=== PATIENT | male | born 1975 | race Hispanic/Latino ===

== ENCOUNTER 2020-06-05 14:31 | Emergency (ER) | payer OTHER ==
[2020-06-05 15:49] LABS: HEMATOCRIT 42.3 % (39.0-50.0); HEMOGLOBIN 13.5 g/dl (14.0-18.0); IMMATURE GRANULOCYTES 0.4 % (0.0-5.0); MEAN CELL VOLUME 83.6 fL CALC (80.0-100.0); MEAN CORPUSCULAR HGB 26.7 pG CALC (26.0-32.0); MEAN CORPUSCULAR HGB CONC 31.9 g/dL CAL (32.0-36.0); NEUT# 4.99 thou/uL (1.82-7.42); RED BLOOD COUNT 5.06 mill/uL (4.70-6.10); RED CELL DISTRI WIDTH 13.3 % (11.5-15.5)
[2020-06-05 16:02] LABS: ALBUMIN 4.2 g/dL (3.2-5.0); ALKALINE PHOSPHATASE 87 u/l (38-126); ANION GAP 14 (6-22 (CALC)); BILIRUBIN, TOTAL 0.8 mg/dL (0.0-1.4); BUN 16 mg/dL (9-20); BUN/CREATININE RATIO 25 (12-20 (CALC)); CARBON DIOXIDE 21 mmol/l (22-30); CHLORIDE 104 mmol/l (95-108); CREATININE 0.6 mg/dL (0.7-1.3); GFR > 60 ML/MIN (>=60 (CALC)); GFR FOR AFR.AMER. > 60 ML/MIN (>=60 (CALC)); POTASSIUM 4.3 mmol/l (3.5-5.1); SGOT/AST 47 u/l (17-59); SODIUM 134 mmol/l (137-146); TOTAL PROTEIN 8.2 g/dL (6.3-8.2)
[2020-06-05 16:14] LABS: MYOGLOBIN 40 ng/mL (0 - 121)
[2020-06-05 17:50] VITALS: BP 131/95
[2020-06-05] MEDS ORDERED: ASPIRIN 81 LOW81 MG PO (17:55)
[2020-06-05] MEDS ORDERED: ZESTRIL10 M1 PO (17:56)
--- NOTE | 2020-06-08 11:11 | NUR ---
Notified Brandyn at [facility] ([id number]) of Covid positive results. Per her request: faxed results to [phone].
== END 2020-06-05 17:52 | DRG 179 ==
LOC: ED 14:31
PROVIDERS: Family Medicine
DX: U07.1 COVID-19 (principal); R43.9 Unspecified disturbances of smell and taste; I10 Essential (primary) hypertension